=== PATIENT | male | born 1930 | race Caucasian/White ===

== ENCOUNTER 2016-07-14 20:06 | Emergency (ER) | payer OTHER ==
[~2016-07-14] VITALS: Ht 177.8 cm; Wt 83.9 kg
[~2016-07-14 20:06] MED LIST: ASPIR 8181 MG PO; AZITHROMYCIN; BETIMOL10 ML GTT; COMBIGAN EYE DR10 ML OPHTHALMIC; COZAAR 25 MG TA25 M2 PO; DIOVAN PO; DYAZIDE PO; FOSAMAX 70 MG T70 M1 PO; FOSAMAX 70 MG T70 MG PO; KLOR-CON 10 ER10 MEQ PO; LUMIGAN2.5 M1 OPHTHALMIC; LUPRON DEPOT45 MG INJECTION; MEGESTROL ACETA40 MG PO; NORVASC PO; VITAMIN D400 UNI1 PO
== END 2016-07-14 21:21 | disposition home or self-care (01) ==
LOC: ER 20:06
DX: S00.01XA Abrasion of scalp, initial encounter (principal); I10 Essential (primary) hypertension; Z98.890 Other specified postprocedural states; Z86.73 Personal history of transient ischemic attack (TIA), and cerebral infarction without residual deficits; Z85.46 Personal history of malignant neoplasm of prostate; Z86.61 Personal history of infections of the central nervous system; H40.89 Other specified glaucoma; F10.99 Alcohol use, unspecified with unspecified alcohol-induced disorder; W18.09XA Striking against other object with subsequent fall, initial encounter; Y93.89 Activity, other specified; Y92.89 Other specified places as the place of occurrence of the external cause; Y99.8 Other external cause status

== ENCOUNTER 2017-03-31 18:19 | Emergency (ER) | payer OTHER ==
[~2017-03-31] VITALS: Ht 177.8 cm; Wt 83.9 kg
[2017-03-31] MEDS ORDERED: TESSALON PERLE100 MG PO (19:31)
[2017-03-31 19:33] VITALS: BP 170/82
== END 2017-03-31 19:37 | disposition home or self-care (01) ==
LOC: ER 18:19
DX: J06.9 Acute upper respiratory infection, unspecified (principal); I10 Essential (primary) hypertension; G47.30 Sleep apnea, unspecified; Z86.73 Personal history of transient ischemic attack (TIA), and cerebral infarction without residual deficits

== ENCOUNTER → 2018-02-06 | Outpatient (CLI) | payer OTHER ==
[~2018-02-06] MED LIST changes: +TESSALON PERLE100 MG PO
== END ==
LOC: CAT 11:42
DX: Z13.6 Encounter for screening for cardiovascular disorders (principal); E78.00 Pure hypercholesterolemia, unspecified

== ENCOUNTER 2019-01-24 12:17 | Emergency (ER) | payer OTHER ==
[~2019-01-24] VITALS: Ht 177.8 cm; Wt 78.9 kg
[2019-01-24] MEDS ORDERED: FLOMAX0.4 MG PO (12:42)
[2019-01-24] MEDS ORDERED: ROSUVASTATIN CA10 MG PO (12:43)
[2019-01-24] MEDS ORDERED: TOPROL XL25 MG PO (12:43)
[2019-01-24 12:56] LABS: URINE BILIRUBIN NEGATIVE (Negative); URINE BLOOD NEGATIVE (Negative); URINE CLARITY CLEAR; URINE COLOR YELLOW; URINE GLUCOSE-RANDOM* NEGATIVE (Negative); URINE KETONES TRACE (Negative); URINE LEUKOCYTES-REFLEX NEGATIVE (Negative); URINE NITRITE-REFLEX NEGATIVE (Negative); URINE PROTEIN (DIPSTICK) 1+ (Negative)
[2019-01-24 13:01] LABS: ABSOLUTE NEUTROPHILS 3.3 thou/uL (1.4-8.2); EOSINOPHILS 3.9 % (0.0-3.0); HEMATOCRIT 33.1 % (42.0-52.0); HEMOGLOBIN 11.1 gm/dL (14.0-18.0); LYMPHOCYTES 25.1 % (24.0-44.0); MCH 30.2 pg (26.0-34.0); MCHC 33.5 g/dL (28.0-37.0); MONOCYTES 8.3 % (1.0-8.0); PLATELET COUNT 274 thou/uL (150-400); POLYS 61.7 % (36.0-66.0); RBC 3.68 mil/uL (4.50-6.00); RDW 13.6 % (10.5-14.5); WBC 5.4 thou/uL (4.0-11.0)
[2019-01-24 13:07] LABS: ANION GAP 5 mmol/L (7-16); BUN 31 mg/dL (7-18); CALCIUM 9.3 mg/dL (8.5-10.1); CHLORIDE 102 mmol/L (98-107); CO2 34 mmol/L (21-32); CREATININE 1.1 mg/dL (0.7-1.3); GLUCOSE 106 mg/dL (74-106); POTASSIUM 3.1 mmol/L (3.5-5.1); SODIUM 141 mmol/L (136-145)
[2019-01-24 13:14] LABS: BACTERIA-REFLEX None Seen /HPF (None Seen); CRYSTALS None Seen /LPF (None Seen); HYALINE CASTS 0-3 Few /LPF (None Seen); MUCUS 0-3 Light strn/LPF (None Seen); SQUAMOUS 0-3 Few /LPF (0-3); URINE RBC None Seen /HPF (0-2); URINE WBC-REFLEX 0-5 Rare /HPF (0-5)
[2019-01-24 13:16] LABS: TROPONIN-I <0.06 ng/mL (<0.06)
[2019-01-24] MEDS ORDERED: LOSARTAN POTASS50 MG PO (14:12)
[2019-01-24] MEDS ORDERED: HYDROCHLOROTHIA25 M2 PO (14:12)
[2019-01-24 15:07] VITALS: BP 134/59
--- NOTE | 2019-01-24 16:50 | EKG ---
[address] [address] ELECTROCARDIOGRAM REPORT Name: ADWOA MILLER [id number] Admission: 01/24/19 Attend Phys: Discharge: 01/24/19 Date of : 32 Report #: [id number] THIS REPORT FOR: //name// [facility] ED Test Date: 2019-01-24 Test Time: 12:39:29 Pat Name: ADWOA MILLER Department: Room: Gender: M Track Watchman: WG : 1930 Requested By: Miguel Schreiber Order Number: [id number] MD: Gene Hope Measurements Intervals [place] Rate: 41 P: 132 IA: 197 QRS: 40 QRSD: 98 T: 121 QT: 539 QTc: 446 Interpretive Statements Sinus bradycardia LVH with secondary repolarization abnormality Compared to ECG 08/23/2014 11:51:47 Left ventricular hypertrophy now present Early repolarization now present ST (T wave) deviation no longer present Electronically Signed On 01-24-2019 16:49:49 EXECUTIVE SOUS CHEF by Gene Hope [email or web address] <ELECTRONICALLY SIGNED> By: Gene Hope MD 01/24/19 1649 1239 [id number] Gene Hope MD /EPI
== END 2019-01-24 15:14 | disposition home or self-care (01) ==
LOC: ER 12:17
PROVIDERS: Emergency Medicine
DX: R53.83 Other fatigue (principal); Z90.89 Acquired absence of other organs; I10 Essential (primary) hypertension; G47.30 Sleep apnea, unspecified; Z98.890 Other specified postprocedural states

== ENCOUNTER 2019-02-12 09:36 | Inpatient (IN) | payer OTHER ==
[2019-02-12] VITALS (11 sets, daily range): BP systolic 111–163; BP diastolic 56–85
[~2019-02-12] VITALS: Ht 177.8 cm; Wt 81.6 kg
[~2019-02-12 09:36] MED LIST changes: +FLOMAX0.4 MG PO; +HYDROCHLOROTHIA25 M2 PO; +LOSARTAN POTASS50 MG PO; +ROSUVASTATIN CA10 MG PO; +TOPROL XL25 MG PO
[2019-02-12 10:51] LABS: ABSOLUTE NEUTROPHILS 3.7 thou/uL (1.4-8.2); BASOPHILS 1.1 % (0.0-2.0); EOSINOPHILS 3.7 % (0.0-3.0); HEMATOCRIT 33.9 % (42.0-52.0); HEMOGLOBIN 11.3 gm/dL (14.0-18.0); LYMPHOCYTES 24.5 % (24.0-44.0); MCH 30.3 pg (26.0-34.0); MCHC 33.4 g/dL (28.0-37.0); MCV 90.7 fL (80.0-100.0); MONOCYTES 8.9 % (1.0-8.0); PLATELET COUNT 250 thou/uL (150-400); POLYS 61.8 % (36.0-66.0); RBC 3.74 mil/uL (4.50-6.00); RDW 13.4 % (10.5-14.5); WBC 5.9 thou/uL (4.0-11.0)
[2019-02-12 10:52] LABS: URINE BLOOD NEGATIVE (Negative); URINE CLARITY CLEAR; URINE COLOR YELLOW; URINE GLUCOSE-RANDOM* NEGATIVE (Negative); URINE KETONES TRACE (Negative); URINE LEUKOCYTES NEGATIVE (Negative); URINE NITRITE NEGATIVE (Negative); URINE PROTEIN (DIPSTICK) 1+ (Negative); URINE SPECIFIC GRAVITY >= 1.030 (1.005-1.035); URINE UROBILINOGEN 0.2 E.U./dl (0.2-1.0)
[2019-02-12 10:57] LABS: CALCIUM 9.4 mg/dL (8.5-10.1); CREATININE 1.1 mg/dL (0.7-1.3); POTASSIUM 3.4 mmol/L (3.5-5.1)
[2019-02-12 11:03] LABS: URINE BILIRUBIN NEGATIVE (Negative)
[2019-02-12 11:03] LABS: ALBUMIN 3.7 g/dL (3.4-5.0); TOTAL BILIRUBIN 0.6 mg/dL (<0.1-1.0); TOTAL PROTEIN 6.6 g/dL (6.4-8.2)
[2019-02-12 11:04] LABS: APTT 26.2 Seconds (24.5-32.8); INR 1.1; PROTIME 11.3 Seconds (9.3-11.4)
[2019-02-12 11:04] LABS: ICTOTEST (BILI CONFIRMATORY) Negative (Negative)
[2019-02-12] MEDS ORDERED: ALENDRONAT70 MG/75 M PO (11:25)
[2019-02-12] MEDS ORDERED: MELOXICAM15 MG PO (11:26)
[2019-02-12 11:35] LABS: SQUAMOUS 0-3 Few /LPF (0-3)
[2019-02-12 11:36] LABS: HYALINE CASTS >10 Many /LPF (None Seen); MUCUS 4-6 Moderate strn/LPF (None Seen)
[2019-02-12 11:37] LABS: URINE WBC 0-5 Rare /HPF (0-5)
[2019-02-12 11:38] LABS: BACTERIA None Seen /HPF (None Seen); CRYSTALS None Seen /LPF (None Seen); URINE RBC 0-2 Rare /HPF (0-2)
--- NOTE | 2019-02-12 15:23 | EKG ---
[address] [address] ELECTROCARDIOGRAM REPORT Name: ADWOA MILLER [id number] Admission: 02/12/19 Attend Phys: Gene Hope MD Discharge: Date of : 32 Report #: [id number] THIS REPORT FOR: //name// [facility] Test Date: 2019-02-12 Test Time: 14:31:56 Pat Name: ADWOA MILLER Department: Room: Gender: Concessions Manager: Avtar SANCHEZ : 1930 Requested By: Gene Hope Order Number: [id number] MD: Gene Hope Measurements Intervals [place] Rate: 60 P: VT: 208 QRS: 27 QRSD: 100 T: 88 QT: 458 QTc: 458 Interpretive Statements Atrial-paced rhythm No ischemic changes. Compared to ECG 01/24/2019 12:39:29 Electronically Signed On 02-12-2019 15:23:22 PARTS DESIGNER by Gene Hope [email or web address] <ELECTRONICALLY SIGNED> By: Gene Hope MD 02/12/19 1523 1431 143 Gene Hope MD /ROSALES
--- NOTE | 2019-02-12 16:56 | 2DMMODE ---
[address] [address] 2 D/M-MODE ECHOCARDIOGRAM Name: ADWOA MILLER Room #: 243-P [facility] IN [facility]#: [id number] Admission: 02/12/19 Attend Phys: Gene Hope Discharge: Date of : 32 Report #: [id number] THIS REPORT FOR: //name// APPROVED REPORT Study performed: 02/12/2019 14:05:35 EXAM: Limited 2D Echocardiogram Patient Location: Bedside Status: stat BSA: 2.00 HR: 63 bpm BP: 128/66 mmHg Rhythm: NSR Other Information Study Quality: Adequate Technically limited study due to inability to position patient. Indications Chest pain post pacemaker Left Ventricle The left ventricular systolic function is normal. The left ventricular ejection fraction is within the normal range. LVEF is 60%. Right Ventricle normal function without criteria for tamponade Atria normal size without criteria for tamponade present Great Vessels IVC is upper limits of normal in size and collapses <50% with inspiration. Pericardium Mild to moderate circumferential pericardial effusion without echocardiographic criteria for tamponade <Conclusion> The left ventricular systolic function is normal. The left ventricular ejection fraction is within the normal range. [facility] [address] [place] [address] 2 D/M-MODE ECHOCARDIOGRAM Name: ADWOA MILLER Room #: 243-P ADM IN M.R.#: [id number] Admission: 02/12/19 Attend Phys: Gene Hope Discharge: Date of : 31 Report #: [id number] RV normal function without criteria for tamponade RA normal size without criteria for tamponade present IVC is upper limits of normal in size and collapses <50% with inspiration. Mild to moderate circumferential pericardial effusion without echocardiographic criteria for tamponade <ELECTRONICALLY SIGNED> By: Iglesia Allen MD 02/12/191654 54 54 Iglesia Allen MD /INF
--- NOTE | 2019-02-12 18:42 | NUR ---
PT FROM EP LAB NEW PACER. CP WELL MAXIMINO WITH PRN MEDS. STRONG APPETITE, ATE ALL OF DINNER. FAMILY GOT ICU VISITOR POLICY, HOME FOR THE NIGHT.
[2019-02-13] VITALS (17 sets, daily range): BP systolic 126–197; BP diastolic 68–110
--- NOTE | 2019-02-13 03:57 | NUR ---
PAITENT IS ALERT AND ORIENTED. PATIENT A-PACED. PATIENT LEFT ARM IMOBLIZED. PATIENT VOIDS PER URINAL. PATEINT IS ROOM AIR. PATIENT IS RESTING COMFORTABLY IN BED. WCM.
[2019-02-13 05:51] LABS: CALCIUM 9.5 mg/dL (8.5-10.1); CREATININE 1.2 mg/dL (0.7-1.3); POTASSIUM 3.3 mmol/L (3.5-5.1)
[2019-02-13 05:52] LABS: ABSOLUTE NEUTROPHILS 4.1 thou/uL (1.4-8.2); BASOPHILS 0.4 % (0.0-2.0); EOSINOPHILS 4.3 % (0.0-3.0); HEMATOCRIT 31.4 % (42.0-52.0); HEMOGLOBIN 10.7 gm/dL (14.0-18.0); LYMPHOCYTES 23.2 % (24.0-44.0); MCH 30.8 pg (26.0-34.0); MCV 90.5 fL (80.0-100.0); MONOCYTES 9.8 % (1.0-8.0); PLATELET COUNT 215 thou/uL (150-400); POLYS 62.3 % (36.0-66.0); RBC 3.47 mil/uL (4.50-6.00); RDW 13.7 % (10.5-14.5); WBC 6.6 thou/uL (4.0-11.0)
--- NOTE | 2019-02-13 06:26 | NUR ---
ELEVATED BLOOD PRESSURE. PROVIDER AWARE. HOME MEDICATION GIVEN. PROVIDER WILL ADDRESS BLOOD PRESSURE THIS AM. WCM.
--- NOTE | 2019-02-13 09:17 | 2DMMODE ---
[facility] [address] [address] 2 D/M-MODE ECHOCARDIOGRAM Name: ADWOA MILLER Room #: 243-P ADM IN M.R.#: [id number] Admission: 02/12/19 Attend Phys: Gene Hope Discharge: Date of : 31 Report #: [id number] THIS REPORT FOR: //name// APPROVED REPORT Study performed: 02/13/2019 08:18:38 EXAM: Comprehensive 2D, Doppler, and color-flow Echocardiogram Patient Location: ICU Room #: 243 Status: routine BSA: 2.00 HR: 60 bpm BP: 168/92 mmHg Rhythm: Pacemaker Other Information Study Quality: Good Indications Pacemaker Pericardial Effusion Left Ventricle The left ventricle is normal size. There is normal LV segmental wall motion. There is normal left ventricular wall thickness. The left ventricular systolic function is normal. The left ventricular ejection fraction is within the normal range. LVEF is 60-65%. Right Ventricle The right ventricle is normal size. The right ventricular systolic function is normal. Pacemaker lead is present in the right ventricle. Atria The left atrium size is normal. Right atrium is at the upper limits of normal. Pacemaker lead is present in the right atrium. Aortic Valve The aortic valve is normal in structure. Mitral Valve The mitral valve is normal in structure. Tricuspid Valve The tricuspid valve is normal in structure. [facility] [address] [place] [address] 2 D/M-MODE ECHOCARDIOGRAM Name: ADWOA MILLER Room #: 243-P ADM IN M.R.#: [id number] Admission: 02/12/19 Attend Phys: Gene Hope Discharge: Date of : 31 Report #: [id number] Pulmonic Valve The pulmonary valve is normal in structure. Great Vessels The aortic root is normal in size. Pericardium Small pericardial effusion appears less than prior echo yesterday <Conclusion> The left ventricle is normal size. LVEF is 60-65%. Pacemaker lead is present in the right ventricle. Right atrium is at the upper limits of normal. Pacemaker lead is present in the right atrium. Small pericardial effusion appears less than prior echo yesterday <ELECTRONICALLY SIGNED> By: Iglesia Allen MD 02/13/19916 6 6 Iglesia Allen MD /INF
--- NOTE | 2019-02-13 16:20 | NUR ---
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 Home multi-level. Patient reports he goes to basement his "man cave" a couple times a day. he reports no difficulty with steps. he has no hx of dme. at bedside uses a rolator walker at all times. She reports patient needs to be independent with bathing at dc as she cannot help him. drives, patient no longer drives. She reports if she is unable to drive their son can assist. Plan home possibly no dc needs.
--- NOTE | 2019-02-13 16:54 | NUR ---
PT TRANSFERED FROM ICU. ALERT AND ORIENTED. VSS. DENIED HAVING PAIN OR DISCOMFORT. LEFT PACEMEKER INCISION C/D/I WITH DERMABOND. AT THE BEDSIDE. NO CARDIAC DISTRESS NOTED. WILL CONTINUE TO MONITOR.
[2019-02-14 04:58] VITALS: BP 177/86
--- NOTE | 2019-02-14 06:00 | NUR ---
ASSUMED PT CARE AT 1900. VSS. PT A&0X4. L CHEST INCISION CDI, APACED ON THE MONITOR. NO HEMATOMA OR BRUISING. PT SLEPT THROUGH THE NIGHT, NO COMPLAINTS OF PAIN OR DISTRESS, WILL CONTINUE TO MONITOR PER POC.
[2019-02-14 07:52] VITALS: BP 197/79
--- NOTE | 2019-02-14 09:25 | 2DMMODE ---
[facility] [place] [employer] [place] [address] 2 D/M-MODE ECHOCARDIOGRAM Name: ADWOA MILLER Room #: 212-P ADM IN M.R.#: [id number] Admission: 02/12/19 Attend Phys: Gene Hope Discharge: Date of : 31 Report #: [id number] THIS REPORT FOR: //name// APPROVED REPORT Study performed: 02/14/2019 08:34:00 EXAM: Comprehensive 2D, Doppler, and color-flow Echocardiogram Patient Location: Bedside Room #: 212 Status: routine BSA: 2.00 HR: 65 bpm BP: 197/79 mmHg Rhythm: Pacemaker Other Information Study Quality: Good Indications Pacemaker Pericardial Effusion Left Ventricle The left ventricle is normal size. There is normal LV segmental wall motion. There is normal left ventricular wall thickness. The left ventricular systolic function is normal. The left ventricular ejection fraction is within the normal range. LVEF is 55-60%. Right Ventricle The right ventricle is normal size. The right ventricular systolic function is normal. Pacemaker lead is present in the right ventricle. Atria Left atrium is at the upper limits of normal. Right atrium is at the upper limits of normal. Pacemaker lead is present in the right atrium. Aortic Valve The aortic valve is normal in structure. Aortic valve is calcified. Mitral Valve The mitral valve is normal in structure. [facility] [address] [place] [address] 2 D/M-MODE ECHOCARDIOGRAM Name: ADWOA MILLER Room #: 212-P ADM IN M.R.#: [id number] Admission: 02/12/19 Attend Phys: Gene Hope Discharge: Date of : 31 Report #: [id number] Tricuspid Valve The tricuspid valve is normal in structure. Pulmonic Valve The pulmonary valve is normal in structure. Great Vessels The aortic root is normal in size. Pericardium Trace pericardial effusion. <Conclusion> The left ventricle is normal size. There is normal left ventricular wall thickness. The left ventricular systolic function is normal. The right ventricle is normal size. Pacemaker lead is present in the right ventricle. Right atrium is at the upper limits of normal. Pacemaker lead is present in the right atrium. Aortic valve is calcified. The mitral valve is normal in structure. Trace pericardial effusion. <ELECTRONICALLY SIGNED> By: Manuel Cooper MD 02/14/19923 3 3 Manuel Cooper MD /INF
[2019-02-14 10:13] VITALS: BP 147/65
[2019-02-14] MEDS ORDERED: METOPROLOL SUCC50 MG PO (10:19)
[2019-02-14 10:59] VITALS: BP 147/65
--- NOTE | 2019-02-14 12:10 | NUR ---
ASSESSMENT CHARTED. PT ALERT AND ORIENTED. PACEMAKER INCISION. C/D/I WITH DERMABOND. SEEN BY DR. SORIANO. ORDERS GIVEN TO DISCHARGE PT TO HOME. DISCHARGE INSTRUCTIONS GIVEN TO PT. PT VERBERLISED UNDERSTANDING.
--- NOTE | 2019-02-15 13:41 | P ---
[facility] [place] [address] PROCEDURE REPORT Name: ADWOA MILLER Room #: 212-P [facility] IN M.R.#: [id number] Admission: 02/12/19 Attend Phys: Gene Hope MD Discharge: 02/14/19 Date of : 31 Report #: [id number] THIS REPORT FOR: //name// CC: Gene Sofiaelton PROCEDURE: PACEMAKER IMPLANTATION PREOPERATIVE DIAGNOSES: 1. Sick sinus syndrome. 2. Sinus arrest. POSTOPERATIVE DIAGNOSES: 1. Sick sinus syndrome. 2. Sinus arrest. HISTORY: The patient is an 88-year-old male with a history of symptomatic bradycardia. He was recently in the Emergency Room with lightheadedness and dizziness and was found to have sinus bradycardia in the 40s. His beta blockers were stopped. He was discharged with a digital media intern, which showed that he had an 18-second pause during the day. He had 2 other pauses that were each 8 seconds in duration. During the entire monitoring, he had 214 pauses. He had associated lightheadedness and dizziness, but no kaya syncopal episodes with these events. He is here for dual-chamber pacemaker implantation. ANESTHESIA: The patient underwent MAC anesthesia with no anesthesia-related complications. DESCRIPTION OF PROCEDURE: The patient underwent informed consent. We discussed the details of the procedure including the risks, which included but not limited to bleeding, infection, vascular damage, cardiac perforation and pneumothorax. He understood these risks and is willing to proceed. The patient was brought to the EP laboratory in a fasting and sedated state, prepped and draped in a sterile fashion. He received IV antibiotics and underwent a venogram showing patency of the left axillary vein. Next, lidocaine was injected below the level of clavicle. Incision was made, pocket was created over the prepectoral fascia and access was obtained twice to the left axillary vein using the extrathoracic approach with sheaths positioned using the modified Seldinger technique. Next, under fluoroscopy, leads were positioned in the right ventricular apex and the lateral right atrium. Of note, he did have a significant tortuosity at the SVC-RA junction, likely due to his advanced age. Leads demonstrated adequate pacing and sensing thresholds and I left a significant amount of slack in the leads to compensate for this tortuosity at his SVC. Leads were sutured to the prepectoral fascia. Device was connected. Tug tests were performed. The pocket was irrigated with vancomycin and the pocket was closed in 2 layers using 2-0 for the deep layer, 3-0 for the middle [address] [address] PROCEDURE REPORT Name: ADWOA MILLER Room #: 212-P [facility] IN ..#: [id number] Admission: 02/12/19 Attend Phys: Gene Hope MD Discharge: 02/14/19 Date of : 31 Report #: [id number] and surgical glue was placed in the outer skin layer. The patient awoke neurologically and hemodynamically intact. No complications and no significant bleeding. Implanted pacemaker was a Medtronic model #W3DR01, serial #[id number]. The atrial lead was a Medtronic model #5076, serial #[id number] and the RV lead was a Medtronic model #5076, 58 cm, serial #[id number]. The atrial lead demonstrated a P-wave of 1.3 millivolts with a pacing impedance of 418 ohms and a pacing threshold of 1.75 volts at 1 millisecond. The ventricular lead demonstrated R-wave of 16.8 millivolts, pacing impedance of 418 ohms and pacing threshold 0.75 volts at 0.4 milliseconds. The device was programmed to the DDDR 60-130 mode. CONCLUSIONS: 1. Successful dual-chamber pacemaker implantation. 2. Satisfactory atrial and ventricular pacing and sensing thresholds. <ELECTRONICALLY SIGNED> By: Gene Hope MD 02/15/19 1341 1345 4168 Gene Hope MD /nt
== END 2019-02-14 12:00 | disposition home or self-care (01) | DRG 243 ==
LOC: CAT 09:36 → CATH 09:36 → 2N 16:06 → ICU 16:06 → 2N 02-13 13:44
PROVIDERS: ADMIT Internal Medicine Cardiovascular Disease
PROC: 02H63JZ Insertion of Pacemaker Lead into Right Atrium, Percutaneous Approach (ICD-10-PCS; principal; 2019-02-12)
PROC: 02HK3JZ Insertion of Pacemaker Lead into Right Ventricle, Percutaneous Approach (ICD-10-PCS; principal; 2019-02-12)
PROC: 0JH606Z Insertion of Pacemaker, Dual Chamber into Chest Subcutaneous Tissue and Fascia, Open Approach (ICD-10-PCS; 2019-02-12)
DX: I49.5 Sick sinus syndrome (principal); I31.3 Pericardial effusion (noninflammatory); I45.5 Other specified heart block; I10 Essential (primary) hypertension; E78.5 Hyperlipidemia, unspecified; G47.33 Obstructive sleep apnea (adult) (pediatric); E83.119 Hemochromatosis, unspecified; Z86.73 Personal history of transient ischemic attack (TIA), and cerebral infarction without residual deficits; Z79.899 Other long term (current) drug therapy; Z85.46 Personal history of malignant neoplasm of prostate; Z28.21 Immunization not carried out because of patient refusal
CPT/HCPCS: 10078; 10081; 62110; 62900; 70005

== ENCOUNTER → 2019-05-15 | Outpatient (CLI) | payer OTHER ==
[~2019-05-15] MED LIST changes: +ALENDRONAT70 MG/75 M PO; +MELOXICAM15 MG PO; +METOPROLOL SUCC50 MG PO
== END ==
LOC: SJCVC 14:51
DX: R94.31 Abnormal electrocardiogram [ECG] [EKG] (principal); I11.9 Hypertensive heart disease without heart failure; I49.5 Sick sinus syndrome; R93.1 Abnormal findings on diagnostic imaging of heart and coronary circulation; E78.5 Hyperlipidemia, unspecified; G47.33 Obstructive sleep apnea (adult) (pediatric); I65.23 Occlusion and stenosis of bilateral carotid arteries; Z95.0 Presence of cardiac pacemaker; Z86.73 Personal history of transient ischemic attack (TIA), and cerebral infarction without residual deficits

== ENCOUNTER → 2020-10-03 | Outpatient (CLI) | payer OTHER | LOC: SJCVC 14:32 | PROVIDERS: ATTEND Internal Medicine | DX: R94.31 Abnormal electrocardiogram [ECG] [EKG] (principal); I11.9 Hypertensive heart disease without heart failure; R93.1 Abnormal findings on diagnostic imaging of heart and coronary circulation; I49.5 Sick sinus syndrome; E78.5 Hyperlipidemia, unspecified; G47.33 Obstructive sleep apnea (adult) (pediatric); I65.23 Occlusion and stenosis of bilateral carotid arteries; M81.0 Age-related osteoporosis without current pathological fracture; Z86.73 Personal history of transient ischemic attack (TIA), and cerebral infarction without residual deficits; Z95.0 Presence of cardiac pacemaker; Z79.899 Other long term (current) drug therapy; Z87.891 Personal history of nicotine dependence; Z72.89 Other problems related to lifestyle ==

== ENCOUNTER → 2021-03-19 | Outpatient (CLI) | payer OTHER | LOC: SJCVC 14:37 | PROVIDERS: ATTEND Internal Medicine | DX: R94.31 Abnormal electrocardiogram [ECG] [EKG] (principal); I11.9 Hypertensive heart disease without heart failure; R93.1 Abnormal findings on diagnostic imaging of heart and coronary circulation; I49.5 Sick sinus syndrome; E78.5 Hyperlipidemia, unspecified; G47.33 Obstructive sleep apnea (adult) (pediatric); I65.23 Occlusion and stenosis of bilateral carotid arteries; Z86.73 Personal history of transient ischemic attack (TIA), and cerebral infarction without residual deficits; Z95.0 Presence of cardiac pacemaker; M19.90 Unspecified osteoarthritis, unspecified site; M81.0 Age-related osteoporosis without current pathological fracture; Z98.890 Other specified postprocedural states; Z87.891 Personal history of nicotine dependence; Z79.899 Other long term (current) drug therapy ==